=== PATIENT | male | born 1965 | race Caucasian/White ===

== ENCOUNTER 2020-05-27 12:39 | Emergency (ER) | payer SELFPAY ==
[~2020-05-27] VITALS: Ht 180.3 cm; Wt 73.9 kg
[2020-05-27 12:53] VITALS: BP 155/94
== END 2020-05-27 13:58 | disposition home or self-care (01) ==
LOC: ER 12:41
DX: J06.9 Acute upper respiratory infection, unspecified (principal); R11.2 Nausea with vomiting, unspecified; R19.7 Diarrhea, unspecified; Z20.828 Contact with and (suspected) exposure to other viral communicable diseases; R03.0 Elevated blood-pressure reading, without diagnosis of hypertension
CPT/HCPCS: 99283; C9803; U0003